=== PATIENT | female | born 1980 | race Hispanic/Latino ===

== ENCOUNTER 2017-06-24 13:31 | Outpatient (CLI) | payer OTHER ==
--- NOTE | 2017-06-24 15:54 | RAD ---
ACUTE ABDOMINAL SERIES FRONTAL VIEW CHEST 2 VIEW ABDOMEN: Date: 06/24/17 INDICATION: Chronic constipation, lactose intolerance. FINDINGS: Lungs are clear. No free air is seen beneath the hemidiaphragms. There is moderate retained fecal mat erial in the colon. The bowel gas pattern is nonobstructed. No acute osseous abnormality. IMPRESSION: 1. Retained fecal material throughout the colon, compatible with constipation. 2. Nonobstructed bowel gas pattern. 3. Clear lungs. POS: [facility]
== END 2017-06-24 13:32 | disposition home or self-care (01) ==
LOC: SCSRAD 13:31
PROVIDERS: ATTEND Internal Medicine Gastroenterology
DX: K59.09 Other constipation (principal); E73.9 Lactose intolerance, unspecified
CPT/HCPCS: 74022

== ENCOUNTER 2017-08-13 10:24 | Outpatient (CLI) | payer OTHER ==
--- NOTE | 2017-08-13 12:23 | RAD ---
COLON MOTILITY STUDY: ABDOMEN ONE VIEW: HISTORY: Chronic constipation. FINDINGS: A large amount of stool is apparent within the colon. Small bowel gas pattern is nonspecific. Grouping of small metallic coils over the gastric body is consistent with a sitz marker capsule. IMPRESSION: Sitz marker study, day 1. Normal findings. POS: [facility]
== END 2017-08-13 10:25 | disposition home or self-care (01) ==
LOC: RAD 10:24
PROVIDERS: ATTEND Internal Medicine Gastroenterology
DX: K59.09 Other constipation (principal)
CPT/HCPCS: 74018

== ENCOUNTER 2017-08-15 15:08 | Outpatient (CLI) | payer OTHER ==
--- NOTE | 2017-08-15 15:41 | RAD ---
SUPINE ABDOMEN: Date: 08/15/17 HISTORY: Assess sitz markers for colonic motility study. FINDINGS/IMPRESSION: Comparison made to exam of 08/13/17, which was day 1 and showed metallic coils within stomach. On today's exam, the markers are scattered throughout the colon with four markers seen in the region of the cecum. There are four markers at the level of the hepatic flexure. There are approximately fou r markers in the region of the transverse colon. There are four markers in the region of the splenic flexure. There are three markers overlying the descending colon. POS: [facility]
== END 2017-08-15 15:09 | disposition home or self-care (01) ==
LOC: RAD 15:08
PROVIDERS: ATTEND Internal Medicine Gastroenterology
DX: K59.09 Other constipation (principal); T18.2XXA Foreign body in stomach, initial encounter
CPT/HCPCS: 74018

== ENCOUNTER 2017-08-20 16:10 | Outpatient (CLI) | payer OTHER ==
--- NOTE | 2017-08-20 17:03 | RAD ---
ABDOMEN ONE VIEW: 08/20/17 HISTORY: Constipation. Sitz marker study. FINDINGS: Large amount of stool overlies the right colon. On day 8, a Sitz marker ring overlies the sigmoid in the left lower quadrant and the rectum. The diaphragm domes and sigmoid colon are partially excluded from the image, although few if any jony ers could be present in the colon. On day 3, the markers were evenly scattered throughout the colon. IMPRESSION: No significant abnormalities are demonstrated. A large amount of stool over the right colon may refle ct constipation; however. POS: [facility]
== END 2017-08-20 16:11 | disposition home or self-care (01) ==
LOC: RAD 16:10
PROVIDERS: ATTEND Internal Medicine Gastroenterology
DX: K59.09 Other constipation (principal)
CPT/HCPCS: 74018

== ENCOUNTER 2017-09-09 06:33 | Day surgery (SDC) | payer OTHER ==
[2017-09-08 13:19] VITALS: BMI 26.5
[2017-09-09] MEDS ORDERED: Famotidine/PF 20 mg/2ml Vial ONE (07:20)
[2017-09-09] MEDS ORDERED: Scopolamine 1.5 mg/72 hour Patch ONE (07:20)
[2017-09-09] MEDS ORDERED: Midazolam HCl 2 mg/2 ml Vial ONE (07:26)
[2017-09-09] MEDS ORDERED: Fentanyl 100 MCG/2 ML VIAL ONE ×4 (07:48→09:01)
[2017-09-09] MEDS ORDERED: Ferric Subsulfate 8 ML BOT ONE (08:11)
[2017-09-09] MEDS ORDERED: Promethazine HCl 25 MG/ML VIAL ONE (09:17)
[2017-09-09] MEDS ORDERED: Hydrocodone-Acetamin 15 ML UDCUP ONE (10:03)
--- NOTE | 2017-09-09 12:00 | OP ---
DATE OF PROCEDURE: 09/09/2017 PREOPERATIVE DIAGNOSES: 1. Chronic adenotonsillitis. 2. Adenotonsillar hypertrophy. POSTOPERATIVE DIAGNOSES: 1. Chronic adenotonsillitis. 2. Adenotonsillar hypertrophy. PROCEDURE: Tonsillectomy and adenoidectomy. SURGEON: Tha Whitaker M.D. ESTIMATED BLOOD LOSS: 0 mL. COMPLICATIONS: None. ANESTHESIA: GETA. PROCEDURE IN DETAIL: After consent was obtained, the patient was identified, brought to the operating room, and placed on the operating table in the supine position. General endotracheal anesthesia and intravenous access was obtained and we proceeded with positioning the patient for oropharyngeal surge ry. Oropharyngeal exposure was obtained with a Kanchan-Boris mouth gag after a head drape was placed an d secured with a towel clip. The Kanchan-Boris mouth gag was then suspended from the Medley tray and monalisa val elevation was achieved with a red rubber catheter. The right tonsil was addressed first. We used a curved Allis to grasp the tonsil and retract it medially as an anterior pillar incision was made. The retrotonsillar fascial plane was then established and blunt dissection was performed with the suc tion cautery. Blood vessels were anticipated, identified, and cauterized as they were encountered. Ul timately, dissection was carried to the posterior tonsillar pillar mucosa which was incised hemostati suzie, as well as the base of tongue connection. The tonsil was then passed off as a specimen and ble eding points within the tonsillar bed were cauterized under direct visualization. We subsequently tur sam our attention to the contralateral side, where using a similar technique, a near identical proced ure was performed. Again, the tonsil was grasped and retracted medially with a curved Allis. The retr otonsillar fascial plane was established and while the anterior pillar was retracted medially, the he mostatic blunt dissection of the tonsil with a suction cautery was performed with blood vessels antic ipated, identified, and cauterized as they were encountered. Again, dissection continued to the base of tongue and posterior tonsillar pillar mucosa which was incised in a hemostatic fashion. The tonsil lar beds were then carefully inspected and bleeding points were identified and cauterized with a suct ion cautery. After this portion of the procedure, hemostasis was completely obtained. Under direct mi rror visualization, we visualized the adenoid pad. Under direct mirror visualization, we removed the bulk of the adenoid tissue with the adenoid curette. We then packed the nasopharynx for an appropriat e period of time with Aly-Synephrine saturated tonsillar sponges. After a period of observation, we r emoved the pack. Under indirect mirror visualization, we obtained hemostasis and vaporization of resi dual adenoid tissue with electrocautery. The patient's oral cavity was copiously irrigated with iced saline and subsequently suctioned. After completion of the procedure, the nasal cavity and oropharynx were irrigated and suctioned as were the gastric contents. The patient was then awakened and transfe rred to the recovery room where the patient remained in stable condition prior to discharge to [facility]
[2017-09-09] MEDS ORDERED: Dexamethasone 20 MG/5 ML VIAL ONE (14:16)
[2017-09-09] MEDS ORDERED: Lidocaine 1% PF 5 ML VIAL ONE (14:16)
[2017-09-09] MEDS ORDERED: Ondansetron HCl/PF 4 MG/2 ML Vial ONE (14:16)
[2017-09-09] MEDS ORDERED: PROPOFOL 200 MG/20 ML VIAL ONE (14:16)
== END 2017-09-09 10:30 | disposition home or self-care (01) ==
LOC: SDC 06:33
PROVIDERS: ATTEND Otolaryngology Plastic Surgery within the Head & Neck
PROC: 0C5QXZZ Destruction of Adenoids, External Approach (ICD-10-PCS; principal; 2017-09-09)
PROC: 0C5PXZZ Destruction of Tonsils, External Approach (ICD-10-PCS; principal; 2017-09-09)
DX: J35.03 Chronic tonsillitis and adenoiditis (principal); J31.2 Chronic pharyngitis; J35.8 Other chronic diseases of tonsils and adenoids; Z87.891 Personal history of nicotine dependence; Z79.899 Other long term (current) drug therapy
CPT/HCPCS: 36415; 85014; 88304; 96374; 96375; J0131; J1100; J2001; J2250; J2405; J2550; J2704; J3010; S0028

== ENCOUNTER 2019-01-17 08:56 | Day surgery (SDC) | payer OTHER ==
[2019-01-07 12:26] VITALS: BMI 27.4
[2019-01-12 17:18] LABS: Hemoglobin 13.2 g/dL (12.0-16.0); Mean Corpuscular Hemoglobin 30.9 pg (27.0-31.0); Mean Corpuscular Volume 90.7 fL (78.0-98.0); Mean Platelet Volume 7.6 fL (7.4-10.4); Platelet Count 283 thou/uL (130-400); RBC Distribution Width 11.3 % (11.5-14.5); Red Blood Cell (RBC) Count 4.29 mill/uL (4.20-5.40); White Blood Cell (WBC) Count 6.1 thou/uL (4.8-10.8)
[2019-01-17] MEDS ORDERED: EPINEPHrine 1 MG/ML AMP ONE (09:20)
[2019-01-17] MEDS ORDERED: Bupivacaine PF 0.5% 30 ML VIAL ONE (09:20)
[2019-01-17] MEDS ORDERED: Famotidine/PF 20 mg/2ml Vial ONE (09:20)
[2019-01-17] MEDS ORDERED: Gabapentin 300 MG CAP ONE (09:20)
[2019-01-17] MEDS ORDERED: CeleCOXIB 100 MG CAP ONE (09:20)
[2019-01-17] MEDS ORDERED: Scopolamine 1.5 mg/72 hour Patch ONE (09:38)
[2019-01-17] MEDS ORDERED: Midazolam HCl 2 mg/2 ml Vial ONE (10:08)
[2019-01-17] MEDS ORDERED: Fentanyl 100 MCG/2 ML VIAL ONE ×3 (10:40→15:07)
[2019-01-17] MEDS ORDERED: Ropivacaine 0.2% 550 ML 750 ML NERVE BLCK SCH (11:00)
[2019-01-17] MEDS ORDERED: Ropivacaine HCl/PF 750 ML in Premix Bag 1 BAG NERVE BLCK SCH (12:30)
[2019-01-17] MEDS ORDERED: Dexamethasone 20 MG/5 ML VIAL ONE (14:31)
[2019-01-17] MEDS ORDERED: Rocuronium Bromide 10 MG/ML (10ML VIAL) ONE (14:31)
[2019-01-17] MEDS ORDERED: diphenhydrAMINE 50 MG/ML VIAL ONE (14:31)
[2019-01-17] MEDS ORDERED: Ondansetron PF 4 MG/2 ML Vial ONE (14:31)
[2019-01-17] MEDS ORDERED: PROPOFOL 200 MG/20 ML VIAL ONE (14:31)
[2019-01-17] MEDS ORDERED: Glycopyrrolate 0.2 MG/ML 5 ML SYRINGE ONE (14:31)
[2019-01-17] MEDS ORDERED: ePHEDrine/0.9% NaCl/PF SYRINGE 50 mg/10 ml ONE (14:31)
[2019-01-17] MEDS ORDERED: Bisacodyl 10 MG SUPP PR PRN (14:43)
[2019-01-17] MEDS ORDERED: Ondansetron PF 4 MG/2 ML Vial IVP PRN (14:43)
[2019-01-17] MEDS ORDERED: HYDROcodone/Acetaminophen 5/325 mg Tablet PO PRN ×2 (14:43)
[2019-01-17] MEDS ORDERED: Simethicone Chewable 80 MG TAB PO PRN (14:43)
[2019-01-17] MEDS ORDERED: Morphine 4 MG/ML VIAL SLOW IVP PRN (14:43)
[2019-01-17] MEDS ORDERED: diphenhydrAMINE 25 MG CAP PO PRN (14:43)
[2019-01-17] MEDS ORDERED: Zolpidem Tartrate 5 MG TAB PO PRN (14:43)
[2019-01-17] MEDS ORDERED: Sodium Chloride 0.9% 1,000 ML IV SCH (14:45)
[2019-01-17 16:07] VITALS: TEMP 98.1
[2019-01-17 16:43] VITALS: BP 116/64
[2019-01-17] MEDS ORDERED: Ketorolac Tromethamine 30 MG/ML VIAL IVP SCH (20:00)
--- NOTE | 2019-01-17 21:02 | OP ---
DATE OF PROCEDURE: 01/17/2019 PREOPERATIVE DIAGNOSES: Fibroid uterus, menorrhagia, refractory to medical management. POSTOPERATIVE DIAGNOSIS: Status post hysterectomy. PROCEDURES PERFORMED: Robotic-assisted total laparoscopic hysterectomy with ExCITE morcellation technique and ON-Q pump placement. DEBIT AGENT: Patience Stout PA-C. COMPLICATIONS: None. ESTIMATED BLOOD LOSS: 100 mL. ANESTHESIA: GETA. PREOPERATIVE FINDINGS: Normal vaginal mucosa. Normal-appearing cervix. Uterus sounds to approximately 10 cm. LAPAROSCOPIC FINDINGS: Enlarged fibroid uterus with multiple large fibroids. Normal-appearing ovaries and tube segments bilaterally. DESCRIPTION OF PROCEDURE: The patient was taken back to the OR with IV fluids running. When she was in the OR, general anesthesia was obtained. Once the patient was asleep, her arms were tucked at her side and her legs were placed in low dorsal lithotomy position. The abdomen and vagina were then prepped and draped in normal fashion for gynecologic laparoscopy. A Oakley catheter was placed into the bladder and drained approximately 75 mL of urine. The catheter was left indwelling for the case with a Becki syringe applied to the tip for bladder manipulation if needed during the case. An operative speculum was then placed into the vagina and the cervix was easily identified and grasped at the anterior lip with a single-tooth tenaculum. The uterus sounded to 10 cm. [id number] manipulator was assembled with 4 cm cup in a 10 cm tip and placed into the uterus and vagina in normal fashion for uterine manipulation during the case. The tenaculum was removed, as well as the speculum. The surgeon's gloves were changed and attention was turned to the laparoscopic portion of the case. Beginning approximately 2-3 cm above the supraumbilical fold, local anesthesia was placed underneath the skin. A 12 mm skin incision was made with a scalpel and a Veress needle was placed through this incision. The abdomen was then insufflated. After the abdomen was insufflated, the Veress needle was removed and a 12 mm trocar was placed into the distended abdomen without difficulty. The trocar obturator was then removed and the laparoscope was placed through this trocar with the above findings noted. The patient was then placed in Trendelenburg position. The uterus was noted to be very large and bulky and larger than previously described ultrasound. While the uterus was very mobile, we felt it was likely too large to safely remove through the vagina. For this reason, the supraumbilical incision was later extended to approximately 2 cm, GelPOINT retractor and laparoscopic port cap was assembled as this entry point. Prior to exchanging the trocar for a GelPOINT, the one left lower quadrant and one right lower quadrant 8 mm robotic trocars were placed using similar technique under direct visualization, as well as an 11 mm right upper quadrant trocar. After all four ports were placed with 12 mm trocar placed through the GelPOINT Mini, the robotic arms and camera were all docked. Beginning on the patient's left side, the left fallopian tube segment was grasped, elevated away from the ovary, transected and removed from the surgical field. The uterus was lateralized to allow for good visualization of the pelvic sidewall and the ureter was visually identified, running away from the planned areas of dissection. The left utero-ovarian ligament was cauterized and transected, allowing the left ovary to fall away to the pelvic sidewall. The round ligament on the patient's left side was identified, cauterized and transected. It was dissected down into anterior and posterior leaves, and the left uterine artery was easily skeletonized on the patient's left side. The anterior leaf was then taken down toward the bladder reflection and the bladder reflection was dissected and used to dissect the bladder away from the planned colpotomy site. In similar fashion, attention was turned to the right side, where the right fallopian tube was identified, cauterized and transected, and removed from the operative field. The utero-ovarian ligament on the patient's right side was cauterized and transected. The patient's ureter on the right side was easily identified and noted to be well away from the uterus and planned areas of dissection. The round ligament on the patient's right side was cauterized, transected, and divided into anterior and posterior leaf, was dissected down towards the level of the uterine artery. The bladder reflection on the patient's right side and bladder flap were completed to the contralateral side and the bladder flap was dissected away from the planned colpotomy site. The uterine arteries on both sides were cauterized and transected with good hemostasis noted. Colpotomy was completed beginning posteriorly and completed circumferentially. After the colpotomy was complete, an attempt was made to pass the uterus through the vaginal cuff, however, was noted to be too large. At this time, the robotic camera was undocked. The GelPOINT cap was removed and the laparoscopic bag was placed through the supraumbilical GelPOINT trocar site. The gel cap was then replaced and the abdomen was reinsufflated. At this point, the vaginal cuff and surgical pedicles were copiously irrigated and suctioned dry. Any small areas of bleeding around the vaginal cuff were controlled with bipolar cautery. Stratafix suture was used to close the cuff from corner to corner in a running fashion and then to close it in a second layer. After the vaginal cuff was closed, the needle was removed. The vaginal cuff was irrigated again and no areas of bleeding were noted. An ON-Q catheter tip was then placed through the abdominal wall and the ON-Q catheter was placed down into the pelvis. Next, the laparoscopic bag was manipulated down into the pelvis, where it was opened and the uterine specimen was placed into the laparoscopic bag. The laparoscopic bag was then directed through the GelPOINT retractor. The gas was released from the abdomen and the trocars were all removed. At this point, attention was turned to extracorporeal morcellation technique of the uterus to extract it from the laparoscopic bag through the supraumbilical port. After approximately 15 minutes of extracorporeal morcellation, the specimen was completely extracted. The laparoscopic bag and GelPOINT Mini retractor were removed. All four port sites were inspected and a small area of bleeding at the right upper quadrant port subcutaneous tissue and the subcutaneous tissue at the supraumbilical port were controlled with Bovie cauterization. The fascia at the supraumbilical port was closed with Vicryl suture. All four skin incisions were closed with Monocryl suture and dressed with Dermabond dressing. At the end of the case, the vagina was inspected and no bleeding was noted in the vagina or the vaginal cuff. The patient was then cleaned, dried, taken to the recovery room in good condition after she was extubated. The surgical findings were shared with her family. Job ID: [id number]
[2019-01-22] MEDS ORDERED: Ibuprofen 800 MG TAB PO SCH (22:00)
== END 2019-01-17 18:04 | disposition home or self-care (01) ==
LOC: SDC 08:56 → 3SE 14:35 → SDC 18:04
PROVIDERS: ATTEND Obstetrics & Gynecology
DX: D25.9 Leiomyoma of uterus, unspecified (principal); F41.9 Anxiety disorder, unspecified; F32.9 Major depressive disorder, single episode, unspecified; Z79.899 Other long term (current) drug therapy; Z87.891 Personal history of nicotine dependence
CPT/HCPCS: 85027; 86850; 86900; 86901; 88307; J0131; J0171; J0690; J1100; J1200; J2250; J2405; J2704; J2795; J3010; S0020; S0028